=== PATIENT | male | born 1985 | race Caucasian/White ===

== ENCOUNTER 2017-02-14 11:32 | Inpatient (IN) | payer OTHER ==
[~2017-02-14 11:32] MED LIST: HYDROXYCUT PO; LORT5TAB PO
[2017-02-14 11:45] VITALS: BP 118/56; PULSE 68; RESP 18; TEMP 98.1; O2SAT 96
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
[2017-02-14] MEDS ORDERED: SODIUM CHLORIDE 0.9% FLUSH 10 ML FLUSH IVF PRN (12:00)
[2017-02-14] MEDS ORDERED: ONDANSETRON HCL 4 MG/2 ML VIAL IV PUSH ONE (12:00)
[2017-02-14] MEDS ORDERED: MORPHINE SULFATE 4 MG/ML INJ IV PUSH ONE (12:00)
[2017-02-14] MEDS ORDERED: IOHEXOL 350 MG/ML 10 ML VIAL (for RAD DIAG) IVCONTRAST ONE (12:12)
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
[2017-02-14] MEDS: SODIUM CHLOR 0.9% 1000 ML INJ 1,000 ML IV SCH ×3 (12:37→14:48)
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
[2017-02-14 12:55] LABS: ALKALINE PHOSPHATASE 87 U/L (45-117); TOTAL BILIRUBIN ADULT 0.6 MG/DL (0.2-1.0)
[2017-02-14 13:02] LABS: ALT (GPT) 35 U/L (12-78); ANION GAP 7 MEQ/L (5-15); BICARBONATE 25.1 MEQ/L (21.0-32.0); BLOOD UREA NITROGEN 20 MG/DL (7-18); CHLORIDE 105 MEQ/L (98-107); GLOMERULAR FILTRATION RATE 90 ML/MIN (>89); SODIUM (NA) 137 MEQ/L (136-145)
[2017-02-14 13:03] LABS: AST (GOT) 41 U/L (15-37)
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
[2017-02-14 13:20] VITALS: BP 124/76; PULSE 77; RESP 16; O2SAT 100
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
[2017-02-14 13:34] LABS: AUTOMATED NEUTROPHIL # 23.9 TH/MM3 (1.8-7.7); BASOPHIL # 0.1 TH/MM3 (0-0.2); BASOPHIL % 0.3 % (0.0-2.0); EOSINOPHIL % 0.2 % (0.0-4.0); HEMATOCRIT 44.9 % (39.0-51.0); HEMO FLAGS DIFF FINAL; LYMPHOCYTE # 1.9 TH/MM3 (1.0-4.8); MEAN CELL VOLUME 92.1 FL (80.0-100.0); MEAN CORPUSCULAR HEMOGLOBIN 29.8 PG (27.0-34.0); MEAN CORPUSCULAR HGB CONC 32.4 % (32.0-36.0); MONO % 5.5 % (0.0-8.0); PLATELET COUNT 153 TH/MM3 (150-450); RED BLOOD COUNT 4.87 MIL/MM3 (4.50-5.90); RED CELL DISTRIBUTION WIDTH 14.1 % (11.6-17.2); WHITE BLOOD COUNT 27.4 TH/MM3 (4.0-11.0)
[2017-02-14] MEDS ORDERED: SODIUM CHLORIDE 0.9% FLUSH 10 ML FLUSH IV FLUSH PRN (14:15)
[2017-02-14] MEDS ORDERED: NALOXONE HCL 0.4 MG/ML AMP IV PUSH PRN (14:15)
[2017-02-14] MEDS ORDERED: ONDANSETRON HCL 4 MG/2 ML VIAL IV PRN (14:15)
[2017-02-14] MEDS ORDERED: Post-op Orders (for Pharmacy) MISC XX ONE (14:15)
[2017-02-14] MEDS ORDERED: MORPHINE SULFATE 4 MG/ML INJ IV PUSH PRN (14:15)
[2017-02-14 15:25] LABS: APTT (PATIENT) 25.2 SEC (24.3-30.1); PROTHROMBIN TIME - PATIENT 10.6 SEC (9.8-11.6)
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
[2017-02-14] MEDS: oxyCODONE/ACETAMINOPHEN 5 MG/325 MG TAB PO PRN (17:55)
[2017-02-14 18:49] VITALS: BP 137/77; PULSE 77; RESP 18; TEMP 98; O2SAT 100
[2017-02-14] MEDS ORDERED: DOCUSATE SODIUM 100 MG CAP PO SCH (21:00)
[2017-02-14] MEDS: FAMOTIDINE 20 MG TAB PO SCH (21:06)
[2017-02-14] MEDS: SODIUM CHLORIDE 0.9% FLUSH 10 ML FLUSH IV FLUSH SCH (21:08)
[2017-02-14 21:16] VITALS: BP 126/82; PULSE 67; RESP 20; TEMP 98.2; O2SAT 93
[2017-02-15] VITALS (7 sets, daily range): BP systolic 131–154; BP diastolic 62–82; PULSE 69–103; RESP 16–20; TEMP 97.2–99.1; O2SAT 90–100
[2017-02-15] MEDS: SODIUM CHLOR 0.9% 1000 ML INJ 1,000 ML IV SCH (02:06)
--- NOTE | 2017-02-15 06:50 | RADRPT ---
EXAM DATE/TIME: 02/15/2017 05:47 [facility] COMPARISON: CHEST SINGLE AP, February 14, 2017, 12:30. INDICATIONS : Short of breath, bilateral chest pain , pain entire spine MEDICAL HISTORY : T4-T10 fractures, multiple bilateral rib fractures SURGICAL HISTORY : None. ENCOUNTER: Subsequent ACUITY: 2 days PAIN SCORE: 7/10 LOCATION: Bilateral chest FINDINGS: A single view of the chest demonstrates the lungs to be symmetrically aerated without evidence of mas s, infiltrate or effusion. No pneumothorax discernible on the current study. The cardiomediastinal co ntours are unremarkable. Osseous structures are intact. CONCLUSION: 1. No pneumothorax discernible on the current study. Shawn Pandey Jr., MD on February 15, 2017 at 6:47 Board Certified Radiologist. This report was verified electronically.
[2017-02-15] MEDS ORDERED: LACTULOSE SYRUP 20 GM/30 ML CUP PO PRN (07:15)
[2017-02-15 08:17] LABS: AUTOMATED NEUTROPHIL # 7.5 TH/MM3 (1.8-7.7); BASOPHIL # 0.1 TH/MM3 (0-0.2); BASOPHIL % 0.5 % (0.0-2.0); EOSINOPHIL # 0.1 TH/MM3 (0-0.4); EOSINOPHIL % 0.6 % (0.0-4.0); HEMO FLAGS DIFF FINAL; LYMPH % 18.8 % (9.0-44.0); MEAN CELL VOLUME 91.5 FL (80.0-100.0); MEAN CORPUSCULAR HEMOGLOBIN 30.3 PG (27.0-34.0); MEAN CORPUSCULAR HGB CONC 33.1 % (32.0-36.0); MONO % 8.7 % (0.0-8.0); NEUT % 71.4 % (16.0-70.0); PLATELET COUNT 118 TH/MM3 (150-450); RED BLOOD COUNT 4.05 MIL/MM3 (4.50-5.90); RED CELL DISTRIBUTION WIDTH 14.2 % (11.6-17.2); WHITE BLOOD COUNT 10.5 TH/MM3 (4.0-11.0)
[2017-02-15 08:33] LABS: ALT (GPT) 33 U/L (12-78); ANION GAP 7 MEQ/L (5-15); AST (GOT) 48 U/L (15-37); BICARBONATE 26.1 MEQ/L (21.0-32.0); BLOOD UREA NITROGEN 16 MG/DL (7-18); CHLORIDE 107 MEQ/L (98-107); GLOMERULAR FILTRATION RATE 130 ML/MIN (>89); POTASSIUM 4.2 MEQ/L (3.5-5.1); SODIUM (NA) 140 MEQ/L (136-145)
[2017-02-15 08:35] LABS: ALKALINE PHOSPHATASE 70 U/L (45-117); TOTAL BILIRUBIN ADULT 0.7 MG/DL (0.2-1.0)
[2017-02-15] MEDS: SODIUM CHLORIDE 0.9% FLUSH 10 ML FLUSH IV FLUSH SCH ×2 (09:00→23:51)
[2017-02-15] MEDS: DOCUSATE SODIUM 50 MG/SENNA 8.6 MG TAB PO SCH ×2 (09:17→23:51)
[2017-02-15] MEDS: oxyCODONE/ACETAMINOPHEN 5 MG/325 MG TAB PO PRN ×2 (09:17→23:52)
[2017-02-15] MEDS: FAMOTIDINE 20 MG TAB PO SCH ×2 (09:17→23:51)
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
[2017-02-15] MEDS ORDERED: METH500T3 PO (11:09)
[2017-02-15] MEDS ORDERED: OXYC1TAB63 PO (11:09)
[2017-02-15] MEDS ORDERED: SENN1TAB PO (11:15)
[2017-02-15] MEDS: METHOCARBAMOL 500 MG TAB PO SCH ×2 (15:05→23:51)
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
[2017-02-16 04:00] VITALS: BP 154/70; PULSE 88; RESP 20; TEMP 98.2; O2SAT 92
[2017-02-16] MEDS: METHOCARBAMOL 500 MG TAB PO SCH ×3 (06:08→20:47)
[2017-02-16] MEDS: oxyCODONE/ACETAMINOPHEN 5 MG/325 MG TAB PO PRN ×2 (06:17→09:56)
[2017-02-16 08:00] VITALS: BP 161/76; PULSE 92; RESP 18; TEMP 97.8; O2SAT 95
[2017-02-16] MEDS: FAMOTIDINE 20 MG TAB PO SCH ×2 (08:58→20:46)
[2017-02-16] MEDS: DOCUSATE SODIUM 50 MG/SENNA 8.6 MG TAB PO SCH ×2 (08:58→20:46)
[2017-02-16] MEDS: SODIUM CHLORIDE 0.9% FLUSH 10 ML FLUSH IV FLUSH SCH ×2 (08:59→20:47)
[2017-02-16] MEDS ORDERED: MORPHINE SULFATE 4 MG/ML INJ IV PUSH PRN (10:30)
--- NOTE | 2017-02-16 10:38 | HHI.PR ---
Subjective Subjective Notes Complains of back pain and SOB donning TLSO with PT Reports left foot numbness that has been present for several months Objective Vitals/I&O Vital Signs Date Time Temp Pulse Resp B/P (MAP) Pulse Ox O2 Delivery O2 Flow Rate FiO2 02/16/17 04:00 98.2 88 20 154/70 (98) 92 02/14/17 13:20 Non-Rebreather 15.00 Labs Laboratory Tests Test 02/14/17 12:10 02/15/17 08:01 Prothrombin Time 10.6 SEC Prothromb Time International Ratio 1.0 RATIO Activated Partial Thromboplast Time 25.2 SEC White Blood Count 10.5 TH/MM3 Red Blood Count 4.05 MIL/MM3 Hemoglobin 12.3 GM/DL Hematocrit 37.0 % Mean Corpuscular Volume 91.5 FL Mean Corpuscular Hemoglobin 30.3 PG Mean Corpuscular Hemoglobin Concent 33.1 % Red Cell Distribution Width 14.2 % Platelet Count 118 TH/MM3 Mean Platelet Volume 9.6 FL Neutrophils (%) (Auto) 71.4 % Lymphocytes (%) (Auto) 18.8 % Monocytes (%) (Auto) 8.7 % Eosinophils (%) (Auto) 0.6 % Basophils (%) (Auto) 0.5 % Neutrophils # (Auto) 7.5 TH/MM3 Lymphocytes # (Auto) 2.0 TH/MM3 Monocytes # (Auto) 0.9 TH/MM3 Eosinophils # (Auto) 0.1 TH/MM3 Basophils # (Auto) 0.1 TH/MM3 CBC Comment DIFF FINAL Differential Comment Blood Urea Nitrogen 16 MG/DL Creatinine 0.71 MG/DL Random Glucose 98 MG/DL Total Protein 5.9 GM/DL Albumin 2.9 GM/DL Calcium Level 7.9 MG/DL Alkaline Phosphatase 70 U/L Aspartate Amino Transf (AST/SGOT) 48 U/L Alanine Aminotransferase (ALT/SGPT) 33 U/L Total Bilirubin 0.7 MG/DL Sodium Level 140 MEQ/L Potassium Level 4.2 MEQ/L Chloride Level 107 MEQ/L Carbon Dioxide Level 26.1 MEQ/L Anion Gap 7 MEQ/L Estimat Glomerular Filtration Rate 130 ML/MIN Radiology Last Impressions Chest X-Ray 02/15/17 0600 Signed Impressions: Service Date/Time: Wednesday, February 15, 2017 05:47 - CONCLUSION: 1. No pneumothorax discernible on the current study. Shawn Pandey Jr., MD Thoracic Spine CT 02/14/17 1148 Signed Impressions: Service Date/Time: Tuesday, February 14, 2017 12:03 - CONCLUSION: 1. Tear drop configuration fracture involving the inferior anterior endplate of T4 vertebral body with associated mild anterior paraspinal hematoma, subtle 1-2 mm retrolisthesis of T4 on T5, and subtle widening of the facet joints bilaterally. Findings are highly suggestive of ligamentous injury at this level. 2. 3. Nearly teardrop configuration fracture involving the inferior anterior endplate of T10 vertebral body which extends to the posterior column laterally on the right with associated fracture through the head of the 10th right rib. There is mild facet joint widening on the right. Ligamentous injury at this level is also suspected. Alf Varghese MD Maxillofacial CT 02/14/17 1148 Signed Impressions: Service Date/Time: Tuesday, February 14, 2017 12:00 - CONCLUSION: 1. No acute facial fractures. Alf Varghese MD Lumbar Spine CT 02/14/17 1148 Signed Impressions: Service Date/Time: Tuesday, February 14, 2017 12:03 - CONCLUSION: No acute disease. Tyler Garcia MD Head CT 02/14/17 1148 Signed Impressions: Service Date/Time: Tuesday, February 14, 2017 12:00 - CONCLUSION: 1. No acute intracranial abnormality. Alf Varghese MD Chest CT 02/14/17 1148 Signed Impressions: Service Date/Time: Tuesday, February 14, 2017 12:09 - CONCLUSION: 1. Very subtle small foci of bilateral pneumothorax with largest trace pockets noted along the anterior lung bases. 2. Numerous buckle type compression deformities of the anterior ribs bilaterally. Nondisplaced fracture of the anterior left eighth rib. Alf Varghese MD Cervical Spine CT 02/14/17 1148 Signed Impressions: Service Date/Time: Tuesday, February 14, 2017 12:00 - CONCLUSION: 1. No acute fracture or subluxation. Alf Varghese MD Abdomen/Pelvis CT 02/14/17 1148 Signed Impressions: Service Date/Time: Tuesday, February 14, 2017 12:12 - CONCLUSION: 1. No CT evidence for significant acute traumatic injury in the abdomen or pelvis. Alf Varghese MD Thoracic Spine MRI 02/14/17 0000 Signed Impressions: Service Date/Time: Tuesday, February 14, 2017 15:00 - CONCLUSION: 1. Fracture subluxation at T4/T5 as described above. Approximately 3 mm of posterior subluxation and with associated mild spinal stenosis, mild right, moderate left foraminal stenosis. There is no cord compression or cord signal abnormality. Cord is intact. The T4/T5 injury is associated with disruption of the interspinal and supraspinous ligaments posteriorly and a large paraspinous posterior hematoma. Anterior and posterior longitudinal ligaments appear intact. 2. Nondisplaced fracture of the T10 vertebral body without associated foraminal or spinal stenosis. 3. The cord is intact. Tyler Brasher MD Narrative Exam GENERAL: 32 year old obese male lying in bed with TLSO brace on. SKIN: Warm and dry. HEAD: Atraumatic. Normocephalic. ENT: No nasal bleeding or discharge. Mucous membranes pink and moist. NECK: Trachea midline. No JVD. CARDIOVASCULAR: Regular rate and rhythm. RESPIRATORY: No accessory muscle use. Lungs clear and diminished to auscultation. Breath sounds equal bilaterally. GASTROINTESTINAL: Abdomen soft, non-tender, nondistended. + BS. MUSCULOSKELETAL: Extremities without cyanosis, or edema. No obvious deformities. NEUROLOGICAL: Awake and alert. Normal speech. A/P Assessment and Plan INJURIES: T4 fx T10 fx RIGHT rib fx (10) LEFT rib fx (8) Small BILAT PTX Diet: Regular Pulmonary: IS Pain: Morphine IV, Percocet, Robaxin Activity: OOB with TLSO brace. PT ordered. GI: Pepcid Bowel: Carmen-colace, PRN Lactulose. LBM 0 DVT: SCDs, Lovenox 40 QD T4 fx, T10 fx Neurosurgery consulted Non-operative management Custom TLSO brace OOB with TLSO brace in place Pain control Lovenox RIGHT rib fx, LEFT rib fx, Small BILAT PTX Supportive care 02/15: CXR shows no PTX Pulmonary toileting Pain control OOB Plan of care discussed with patient at bedside. Plan to DC home in 1-2 days when ambulating safely with TLSO brace. Attending Statement The exam, history, and the medical decision-making described in the above note were completed with the assistance of the mid-level provider. I reviewed and agree with the findings presented. I attest that I had a [id number] encounter with the patient on the same day, and personally performed and documented my assessment and findings in the medical record. awake alert, GCS15, VOSS equal OOB with PT and TLSO' working toward safe DC plan, likely home with family Raul Flores Feb 16, 2017 10:38 Fran Alexander MD Mar 02, 2017 23:50
[2017-02-16 12:00] VITALS: BP 141/79; PULSE 95; RESP 18; TEMP 98.4; O2SAT 92
[2017-02-16] MEDS: ENOXAPARIN SODIUM 40 MG/0.4 ML SYRINGE SQ SCH (13:43)
[2017-02-16] MEDS ORDERED: WALKER WHEELS/F1 MIS (15:50)
[2017-02-16] MEDS: oxyCODONE/ACETAMINOPHEN 10 MG/325 MG TAB PO PRN ×2 (16:12→20:46)
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
[2017-02-16 18:20] VITALS: BP 160/74; PULSE 89; RESP 18; TEMP 97.8; O2SAT 97
[2017-02-16 21:40] VITALS: BP 126/59; PULSE 92; RESP 17; TEMP 98.3; O2SAT 96
[2017-02-17 00:40] VITALS: BP 125/60; PULSE 84; RESP 18; TEMP 98.1; O2SAT 97
[2017-02-17] MEDS: oxyCODONE/ACETAMINOPHEN 10 MG/325 MG TAB PO PRN ×3 (05:25→18:20)
[2017-02-17] MEDS: METHOCARBAMOL 500 MG TAB PO SCH ×2 (05:25→13:13)
[2017-02-17 05:45] VITALS: BP 155/73; PULSE 102; RESP 20; TEMP 97.3; O2SAT 95
[2017-02-17] MEDS: DOCUSATE SODIUM 50 MG/SENNA 8.6 MG TAB PO SCH (09:06)
[2017-02-17] MEDS: FAMOTIDINE 20 MG TAB PO SCH (09:06)
[2017-02-17 09:07] VITALS: BP 134/76; PULSE 89; RESP 18; TEMP 98.3; O2SAT 97
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
[2017-02-17] MEDS: SODIUM CHLORIDE 0.9% FLUSH 10 ML FLUSH IV FLUSH SCH (09:11)
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
[2017-02-17 12:54] VITALS: BP 138/72; PULSE 96; RESP 17; TEMP 98.4; O2SAT 93
[2017-02-17] MEDS: ENOXAPARIN SODIUM 40 MG/0.4 ML SYRINGE SQ SCH (13:13)
[2017-02-17] MEDS: oxyCODONE/ACETAMINOPHEN 5 MG/325 MG TAB PO PRN (13:14)
[2017-02-17 16:28] VITALS: O2SAT 93
== END 2017-02-17 18:25 | disposition home health service (06) | DRG 200 ==
LOC: NEPC 11:32 → NEDA 13:35 → N05A 17:38
PROVIDERS: ADMIT Surgery; ATTEND Surgery
DX: S27.0XXA Traumatic pneumothorax, initial encounter (principal); S22.43XA Multiple fractures of ribs, bilateral, initial encounter for closed fracture; S22.049A Unspecified fracture of fourth thoracic vertebra, initial encounter for closed fracture; S22.079A Unspecified fracture of T9-T10 vertebra, initial encounter for closed fracture; E66.9 Obesity, unspecified; S23.3XXA Sprain of ligaments of thoracic spine, initial encounter; V58.5XXA Driver of pick-up truck or van injured in noncollision transport accident in traffic accident, initial encounter
CPT/HCPCS: 70450; 70486; 71010; 71260; 72125; 72128; 72131; 72146; 74177; 80053; 85025; 85610; 85730; 94150; 96361; 96374; 96375; J1650; J2270; J2405; J7030; L0484; Q9967

== ENCOUNTER 2017-05-25 17:48 | Emergency (ER) | payer OTHER ==
[~2017-05-25] VITALS: Ht 167.6 cm; Wt 155.4 kg
[~2017-05-25 17:48] MED LIST changes: +CLOT1CRE6 TOPICAL; +DOXY100C PO; +FLUC150T PO; -HYDROXYCUT PO; -LORT5TAB PO; +SELE2.5%T TOPICAL
[2017-05-25 17:49] VITALS: BP 172/101; PULSE 90; RESP 14; TEMP 98.2; O2SAT 97
[2017-05-25 19:07] VITALS: BP 151/70; PULSE 86; RESP 14; O2SAT 97
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
--- NOTE | 2017-05-25 20:08 | RADRPT ---
EXAM DATE/TIME: 05/25/2017 19:28 [place] COMPARISON: No previous studies available for comparison. INDICATIONS : Scrotal swelling. MEDICAL HISTORY : None. Thorasic fractures. SURGICAL HISTORY : None. ENCOUNTER: Initial ACUITY: 3 days PAIN SCORE: 0/10 LOCATION: Bilateral scrotum. MEASUREMENTS: RIGHT TESTICLE: 4.0 x 2.6 x 2.2cm LEFT TESTICLE: 4.1 x 2.7 x 2.0cm FINDINGS: RIGHT TESTICLE: Homogeneous echotexture without intra or extratesticular mass. Blood flow is symmetric and within no rmal limits. No hydrocele or varicocele. 4 mm epididymal head cyst. Epididymis is otherwise within normal limits. LEFT TESTICLE: Homogeneous echotexture without intra or extratesticular mass. Blood flow is symmetric and within no rmal limits. No hydrocele or varicocele. 9 mm epididymal head cyst. Epididymis is otherwise within normal limits. SCROTUM: Mild wall edema. No organized fluid. CONCLUSION: 1. Mild nonspecific scrotal edema. No other acute abnormalities are demonstrated. 2. Normal testes. No torsion. 3. Subcentimeter bilateral spermatoceles are incidentally seen. Tyler Brasher MD on May 25, 2017 at 20:05 Board Certified Radiologist. This report was verified electronically.
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
== END 2017-05-25 20:28 | disposition home or self-care (01) ==
LOC: NEPD 17:48
DX: N50.89 Other specified disorders of the male genital organs (principal); N43.42 Spermatocele of epididymis, multiple
CPT/HCPCS: 76870; 93975